=== PATIENT | male | born 1985 | race Caucasian/White ===

== ENCOUNTER 2017-08-12 20:52 | Emergency (ER) | payer SELFPAY ==
[~2017-08-12] VITALS: Ht 170.2 cm; Wt 79.8 kg
[2017-08-12 20:55] VITALS: Ht 170.2 cm; Wt 79.8 kg
[2017-08-12 22:16] VITALS: BP 131/82
== END 2017-08-12 22:16 | disposition home or self-care (01) ==
LOC: ED 20:52
DX: S61.012A Laceration without foreign body of left thumb without damage to nail, initial encounter (principal); X58.XXXA Exposure to other specified factors, initial encounter; Y93.89 Activity, other specified; Y99.8 Other external cause status; Y92.89 Other specified places as the place of occurrence of the external cause
CPT/HCPCS: J2001